=== PATIENT | male | born 1995 | race Two or more races ===

== ENCOUNTER → 2024-07-03 | Day surgery (SDC) | payer OTHER ==
[2024-06-28 13:16] LABS: Urine Bacteria None Seen /hpf (None Seen)
[2024-06-28 13:33] LABS: Hematocrit 45.9 % (41.0-53.0); Hemoglobin 15.6 g/dL (13.5-17.5); Mean Corpuscular Hemoglobin 29.1 pg (28.0-32.0); Mean Corpuscular Hgb Conc. 33.9 g/dL (32.0-36.0); Mean Corpuscular Volume 85.9 fL (80.0-100.0); Platelet Count (auto) 205 10^3/uL (140-450); Red Blood Cells 5.35 10^6/uL (4.5-5.90); Red Cell Distribution Width 13.2 % (11.8-14.3); White Blood Cell 6.5 10^3/uL (4.4-10.8)
[2024-06-28 13:38] LABS: Band Neutrophils % (manual) 0; Basophils % (manual) 0 (0.0-2.0); Blast Cells 0; Metamyelocytes % 0; Myelocytes % 0; Promyelocytes % 0; Reactive Lymphocytes 0
[2024-06-28 14:09] LABS: Alanine Aminotransferase 12 U/L (7-40); Alkaline Phosphatase 51 U/L (46-116); Anion Gap 7 (5-15); Aspartate Aminotransferase 15 U/L (13-40); BUN/Creatinine Ratio 12.1 (10.0-20.0); Blood Urea Nitrogen 13 mg/dL (9-23); Calcium 10.3 mg/dL (8.7-10.4); Carbon Dioxide 29 mmol/L (20-31); Chloride 105 mmol/L (98-107); Glucose 98 mg/dL (74-106); Potassium 4.1 mmol/L (3.5-5.1); Sodium 141 mmol/L (136-145); Total Protein 7.2 g/dL (5.7-8.2)
[2024-06-28 14:11] LABS: Albumin 4.8 g/dL (3.2-4.8); Bilirubin, Total 0.3 mg/dL (0.2-1.0)
[2024-06-28 14:14] LABS: Urine Amorphous Crystal FEW /hpf (None Seen); Urine Blood Negative /uL (Negative); Urine Clarity Ex.Turbid (Clear); Urine Color Colorless (Yellow); Urine Protein, UAD Negative (Negative); Urine Specific Gravity 1.019 (1.001-1.035); Urine Squamous Epithelial Cell None Seen /hpf (<5); Urine Urobilinogen Normal (Negative); Urine pH 7.5 (5.0-9.0)
[2024-06-28 14:20] LABS: INR 1.02 (0.9-1.15); Partial Thromboplastin Time 28.4 SEC (24.5-34.5); Prothrombin Time 10.8 sec (9.3-11.8)
[2024-06-28 15:24] LABS: Eosinophils % (manual) 1 (0-7); Lymphocytes % (manual) 24 (10.0-50.0); Monocytes % (manual) 9 (0-12)
[2024-06-28 15:25] LABS: Large Platelets FEW; Platelet Estimate Adequate
[~2024-07-03] VITALS: Ht 175.3 cm; Wt 99.8 kg
[~2024-07-03] MED LIST: BUPIVACAINE 0.25% INJ 50ML VIAL ONE; BUPIVACAINE HCL 50 ML ONE; DexAMETHasone SOD PHOS 10MG/1ML VIAL INJ ONE; HYDROmorphone HCL 2 MG/ML VL/or syr IV PRN; KETOROLAC TROMETH 30 MG/ML 1ML VIAL IV ONE; KETOROLAC TROMETH 30 MG/ML 1ML VIAL ONE; LIDOCAINE 1% HCL (LOCAL ANESTH.) INJ 20ML MDV ONE; LIDOCAINE 2%HCL (LOCAL ANESTH.) INJ 10ml MDV ONE; MIDAZOLAM HCL 2MG/2ML 2ml VIAL (1mg/ml) IV PRN; MIDAZOLAM HCL 2MG/2ML 2ml VIAL (1mg/ml) ONE; MORPHINE SULFATE 4 MG/ML SYR/VIAL IV PRN; ONDANSETRON HCL 4 MG/2 ML VIAL IV ONE; PROPOFOL 10 MG/ML 20 ML IV ONE; ceFAZolin 2 GM/D5W100ml 100 ML IV ONE; ePHEDrine SULFATE 50 MG/ML AMP IV PRN; fentaNYL CITRATE 100 MCG/2 ML VL ONE; hydrALAZINE HCL 20 MG/ML VL IV PRN
[2024-07-03 06:50] VITALS: TEMP 97.4
--- NOTE | 2024-07-03 07:48 | DVHOP2 ---
Operative Report - 2 Report Details Date: 07/03/24 Preop Diagnosis: Left thumb soft tissue mass Postop Diagnosis: left thumb soft tissue mass Surgeon: Natalio Ortiz MD Merchandising [employer] Associate: Buzz LEWIS Anesthesiologist: Mila Anesthesia: General, Local Consent: The patient was informed of the risks and benefits of the procedure. These include but are not limited to complications of anesthesia, postoperative infection, incomplete relief of symptoms, recurrence of symptoms, damage to blood vessels, nerves and tendons, deep venous thrombosis, pulmonary embolism and possible need for repeat surgery in the future. Complications: None Estimated Blood Loss: None Fluids: See anesthesia record Findings: Very hard opaque nodule superficial to flexor tendon sheath about three or 4 mm in diameter Indications for Surgery: Left thumb nodule causing pain with daily activities Name of Procedure Performed Excisional biopsy left thumb mass Procedure Details Procedure Details: Patient was brought to the operating room placed table in the supine position. Initially we tried conscious sedation however the patient was moving so he was switched to a mask general anesthetic. Preop patient received IV antibiotic. Left upper extremity was prepped and draped in sterile fashion. A surgical time-out was performed verifying patient, laterality, and procedure. I did digital nerve block using 2% lidocaine 0.5% Marcaine no epinephrine. Extremity was then elevated, exsanguinated with Esmarch, tourniquet inflated to 250 mm Hg. The like incision was made at the distal volar flexor crease. Subcutaneous dissection performed with scissors identifying the hard nodule which was sharply excised with scissors. Wound irrigated with normal saline. Wound closed with 3-0 nylon and dressed sterilely. Tourniquet released. Patient tolerated the procedure well and was brought to the recovery room in stable condition. Specimen: Thumb mass to pathology Condition Stable Disposition Still a Patient NATALIO ORTIZ MD Jul 03, 2024 07:48
[2024-07-03 07:55] VITALS: PULSE 60; RESP 15
[2024-07-03 08:10] VITALS: O2SAT 100
[2024-07-03 08:25] VITALS: O2SAT 98
[2024-07-03 08:40] VITALS: BP 128/71; PULSE 73; RESP 18; O2SAT 96
== END | disposition home or self-care (01) ==
LOC: SUR 06:48
PROVIDERS: ATTEND Orthopaedic Surgery
DX: R22.32 Localized swelling, mass and lump, left upper limb (principal); D21.12 Benign neoplasm of connective and other soft tissue of left upper limb, including shoulder; M79.645 Pain in left finger(s)
CPT/HCPCS: 26160; 36415; 80053; 81001; 85007; 85027; 85610; 85730; 88305; 88342; J1100; J1885; J2003; J2250; J2704; J3010; J3490